=== PATIENT | female | born 1975 | race Two or more races ===

== ENCOUNTER 2017-12-24 15:57 | Emergency (ER) | payer MEDICAID ==
[2014-11-06 08:49] VITALS: Wt 71.2 kg
[~2017-12-24 15:57] MED LIST: ASPI81TA94 PO; FERR-53 PO; HEPA500035 SQ; IBUP600T22 PO; PER PO; WARF-1 PO
[2017-12-24] MEDS ORDERED: CLON-303 PO (16:09)
--- NOTE | 2017-12-24 16:09 | ER Report ---
History and Physical Time Seen By MD: 16:05 Hx. of Stated Complaint: PT REPORTS SEVERE HEADACHE SINCE 11AM HPI/ROS CHIEF COMPLAINT: Headache HISTORY OF PRESENT ILLNESS: This is a 42-year-old, Syrian-speaking only female who presents to the emergency department with her for a headache. Patient states that around 11:00 today she developed a headache, she has a history of migraine headaches however this one seems to be more severe than when she's had in the past. Patient also has a history of antiphospholipid syndrome, she thought this was causing the headache however she thinks it is the migraine. Patient is photophobic no photophobia. Nausea no vomiting at this time. No diarrhea. No recent travel or injuries. No chest pain or shortness of breath. No rashes. REVIEW OF SYSTEMS: Constitutional: No fever, no chills. Eyes: No discharge. ENT: No sore throat. Cardiovascular: No chest pain, no palpitations. Respiratory: No cough, no shortness of breath. Gastrointestinal: As above. Genitourinary: No hematuria. Musculoskeletal: No back pain. Skin: No rashes. Neurological: As above. Allergies: Coded Allergies: No Known Drug Allergies (Unverified , 11/06/14) Home Meds Active Scripts Ibuprofen (IBUPROFEN) 800 Mg Tablet, 1 TAB PO Q8H Y for prn, #12 TAB 0 Refills Prov:ZOË MEZA [facility] 12/24/17 Prochlorperazine Maleate (Compazine) 5 Mg Tablet, 5 MG PO Q6-8H, #12 TAB 0 Refills Prov:ZOË MEZA [facility] 12/24/17 Warfarin Sodium (COUMADIN) 5 Mg Tablet, 5 MG PO QDAY, #30 TAB 1 Refill Prov:BRITTANY BRAND MD 11/10/14 Oxycodone/Acetaminophen (OXYCODONE/ACETAMINOPHEN 5MG/325 MG) 1 Tab Tab, 1-2 TAB PO Q4H Y for PAIN, #30 TAB 0 Refills Prov:BRITTANY BRAND MD 11/10/14 Reported Medications Clonazepam (CLONAZEPAM) 1 Mg Tablet, 1 MG PO BID, #6 TAB 12/24/17 Aspirin (ASPIRIN) 81 Mg Tab.chew, 81 MG PO QDAY, TAB.CHEW TAKE 1 TABLET BY MOUTH EVERY DAY 11/06/14 Discontinued Scripts Ibuprofen (IBUPROFEN) 600 Mg Tab, 600 MG PO Q6H Y for PAIN, #30 TAB 0 Refills Prov:BRITTANY BRAND MD 11/10/14 Ferrous Sulfate (FERROUS SULFATE) 325 Mg Tab, 325 MG PO BIDBS, #50 TAB 0 Refills Prov:BRITTANY BRAND MD 11/10/14 Past Medical/Surgical History Patient has a past medical and surgical history of migraines, anti-phospholipid syndrome. Reviewed Nurses Notes: Yes Hx Smoking: No Smoking Status: Never Smoker Exposure to Second Hand Smoke?: No Constitutional Vital Sign - Last 24 Hours 12/24/17 12/24/17 12/24/17 12/24/17 15:57 16:01 16:02 16:12 Temp 98.5 Pulse ??? 93 80 Resp 14 B/P (MAP) 106/61 (76) 106/61 Pulse Ox 97 98 O2 Delivery Room Air 12/24/17 12/24/17 12/24/17 12/24/17 16:24 16:27 16:30 16:42 Pulse 71 67 B/P (MAP) 101/55 (70) 108/52 (70) Pulse Ox 99 97 12/24/17 12/24/17 12/24/17 12/24/17 16:57 17:00 17:12 17:27 Pulse 63 71 72 B/P (MAP) 113/82 (92) Pulse Ox 100 100 95 12/24/17 12/24/17 12/24/17 12/24/17 17:30 17:42 17:47 18:00 Pulse 70 75 Resp 18 17 B/P (MAP) 107/59 (75) 111/64 (80) Pulse Ox 95 95 12/24/17 12/24/17 12/24/17 12/24/17 18:02 18:17 18:30 18:32 Pulse 75 69 73 Resp 17 14 B/P (MAP) 109/66 (80) Pulse Ox 94 98 12/24/17 18:47 Pulse 76 Pulse Ox 93 Intake and Output 12/24/17 12/24/17 12/25/17 15:00 23:00 07:00 Intake Total 1000 ml Balance 1000 ml Physical Exam General Appearance: The patient is alert, has no immediate need for airway protection and no signs of toxicity, room is darkened for patient comfort. Eyes: Pupils equal and round no pallor or injection. EOMs intact. No nystagmus. ENT, Mouth: Mucous membranes are moist. Respiratory: There are no retractions, lungs are clear to auscultation. Cardiovascular: Regular rate and rhythm, no murmurs, clicks or rubs. Gastrointestinal: Abdomen is soft and non tender, no masses, bowel sounds normal. No abdominal bruits. Neurological: Alert and oriented 4. Moving all extremities. Following all commands. No focal neuro deficits. Cranial nerves II through XII intact. Skin: Warm and dry, no rashes. Musculoskeletal: Neck is supple non tender. Extremities are nontender, nonswollen and have full range of motion. DIFFERENTIAL DIAGNOSIS: After history and physical exam differential diagnosis was considered for headache including but not limited to subarachnoid hemorrhage , migraine headache, tension headache and infectious causes such as meningitis, pharyngitis and sinusitis. Medical Decision Making Data Points Result Diagram: 12/24/17 1630 12/24/17 1630 Laboratory Hematology Test 12/24/17 16:30 Red Blood Count 3.88 M/uL (4.17-5.56) Mean Corpuscular Volume 91.1 fL (80.0-96.0) Mean Corpuscular Hemoglobin 31.0 pg (26.0-33.0) Mean Corpuscular Hemoglobin Concent 34.0 g/dL (32.0-36.0) Red Cell Distribution Width 13.5 % (11.5-14.5) Mean Platelet Volume 9.1 fL (7.2-11.1) Neutrophils (%) (Auto) 72.2 % (39.4-72.5) Lymphocytes (%) (Auto) 21.4 % (17.6-49.6) Monocytes (%) (Auto) 4.8 % (4.1-12.4) Eosinophils (%) (Auto) 1.0 % (0.4-6.7) Basophils (%) (Auto) 0.6 % (0.3-1.4) Nucleated RBC Relative Count (auto) 0.0 /100WBC Neutrophils # (Auto) 7.8 K/uL (2.0-7.4) Lymphocytes # (Auto) 2.3 K/uL (1.3-3.6) Monocytes # (Auto) 0.5 K/uL (0.3-1.0) Eosinophils # (Auto) 0.1 K/uL (0.0-0.5) Basophils # (Auto) 0.1 K/uL (0.0-0.1) Nucleated RBC Absolute Count (auto) 0.00 K/uL Prothrombin Time 15.1 seconds (12.0-14.4) Prothromb Time International Ratio 1.19 Sodium Level 138 mmol/L (137-145) Potassium Level 3.4 mmol/L (3.5-5.0) Chloride Level 104 mmol/L (98-107) Carbon Dioxide Level 24 mmol/L (22-31) Blood Urea Nitrogen 11 mg/dl (7-18) Creatinine 0.60 mg/dl (0.52-1.04) Glomerular Filtration Rate Calc > 60.0 Random Glucose 99 mg/dl (75-110) Calcium Level 8.9 mg/dl (8.4-10.2) Total Bilirubin 0.8 mg/dl (0.2-1.3) Aspartate Amino Transf (AST/SGOT) 18 U/L (0-35) Alanine Aminotransferase (ALT/SGPT) 23 U/L (0-56) Alkaline Phosphatase 87 U/L (0-126) Total Protein 7.4 g/dl (6.3-8.2) Albumin 4.0 g/dl (3.5-5.0) Human Chorionic Gonadotropin, Qual Negative (NEGATIVE) Chemistry Test 12/24/17 16:30 White Blood Count 10.8 k/uL (4.5-11.0) Red Blood Count 3.88 M/uL (4.17-5.56) Hemoglobin 12.0 g/dL (12.0-16.0) Hematocrit 35.3 % (34.0-47.0) Mean Corpuscular Volume 91.1 fL (80.0-96.0) Mean Corpuscular Hemoglobin 31.0 pg (26.0-33.0) Mean Corpuscular Hemoglobin Concent 34.0 g/dL (32.0-36.0) Red Cell Distribution Width 13.5 % (11.5-14.5) Platelet Count 212 K/uL (150-450) Mean Platelet Volume 9.1 fL (7.2-11.1) Neutrophils (%) (Auto) 72.2 % (39.4-72.5) Lymphocytes (%) (Auto) 21.4 % (17.6-49.6) Monocytes (%) (Auto) 4.8 % (4.1-12.4) Eosinophils (%) (Auto) 1.0 % (0.4-6.7) Basophils (%) (Auto) 0.6 % (0.3-1.4) Nucleated RBC Relative Count (auto) 0.0 /100WBC Neutrophils # (Auto) 7.8 K/uL (2.0-7.4) Lymphocytes # (Auto) 2.3 K/uL (1.3-3.6) Monocytes # (Auto) 0.5 K/uL (0.3-1.0) Eosinophils # (Auto) 0.1 K/uL (0.0-0.5) Basophils # (Auto) 0.1 K/uL (0.0-0.1) Nucleated RBC Absolute Count (auto) 0.00 K/uL Prothrombin Time 15.1 seconds (12.0-14.4) Prothromb Time International Ratio 1.19 Glomerular Filtration Rate Calc > 60.0 Calcium Level 8.9 mg/dl (8.4-10.2) Total Bilirubin 0.8 mg/dl (0.2-1.3) Aspartate Amino Transf (AST/SGOT) 18 U/L (0-35) Alanine Aminotransferase (ALT/SGPT) 23 U/L (0-56) Alkaline Phosphatase 87 U/L (0-126) Total Protein 7.4 g/dl (6.3-8.2) Albumin 4.0 g/dl (3.5-5.0) Human Chorionic Gonadotropin, Qual Negative (NEGATIVE) Coagulation Test 12/24/17 16:30 Prothrombin Time 15.1 seconds Prothromb Time International Ratio 1.19 EKG/Imaging Imaging Location[place] [facility] [place]: Lois Bhatti : 1975 Visit/Account:[id number] Date of : 12/24/2017 CT Head without contrast Indication: Headache. Comparison: None available Technique: Axial CT images were obtained through the brain from the skull base to the vertex without administration of IV contrast. Reformatted coronal and sagittal images were also obtained. One of the following dose optimization techniques was utilized in the performance of this exam: automated exposure control; adjustment of the mA and/ or kV according to the patient's size; or use of an iterative reconstruction technique. Specific details can be referenced in the facility's radiology CT exam operational policy. Findings: No evidence of mass, mass effect, or midline shift. No acute intracranial hemorrhage or acute territorial infarction. No extra-axial fluid collection or hydrocephalus. No abnormal density. Benign calcination seen in the posterior medial left frontal lobe. Sheriff/white matter differentiation appears normal. Bony structures show no fractures or lesions. The visualized paranasal sinuses and mastoid air cells are clear. IMPRESSION: 1. No acute intracranial abnormality. Report Dictated By: Tom Sanchez at 12/24/2017 5:29 PM Report E-Signed By: Tom Sanchez at 12/24/2017 5:37 PM WSN:[id number] ED Course/Re-evaluation Clinical Indication for ER IV: Hydration, IV Access ED Course The patient was admitted to a room. A history and physical were obtained. Differential diagnoses were considered. An IV was started. A CBC, CMP, PT and INR were obtained. Lab studies unremarkable however the patient's INR is subtherapeutic at 1.19. Through translation the patient states that she has not been evaluated by a primary care or provider for at least 6 months, she states she is still taking her Coumadin she does get a prescription from provider in [facility]. Head CT negative for any acute intracranial abnormalities. I reviewed the CT results with the patient and her . The patient was given a 1 L normal saline bolus. 30 mg IV Toradol, 12.5 mg IV Phenergan, 4 mg IV Zofran, 125 mg Solu-Medrol with mild pain relief, patient was then given 5 mg IV Reglan. Patient is very sleepy, states the pain as still mildly improving through translation. I did tell the patient once again that she must follow-up with a primary care provider within one week for reevaluation as well as continued monitoring of her Coumadin levels. A prescription for Compazine and ibuprofen was sent patient's pharmacy. The patient and her had no other questions or concerns at this time and was discharged home. Decision to Disposition Date: Dec 24, 2017 Decision to Disposition Time: 19:03 Depart Departure Latest Vital Signs Vital Signs Date Time Temp Pulse Resp B/P (MAP) Pulse Ox O2 Delivery O2 Flow Rate FiO2 12/24/17 18:47 76 93 12/24/17 18:32 14 12/24/17 18:30 109/66 (80) 12/24/17 16:02 98.5 Room Air Impression: Primary Impression: Migraine headache Condition: Improved Disposition: HOME OR SELF-CARE New Scripts Ibuprofen (IBUPROFEN) 800 Mg Tablet 1 TAB PO Q8H Y for prn, #12 TAB 0 Refills Prov: ZOË MEZA [facility] 12/24/17 Prochlorperazine Maleate (Compazine) 5 Mg Tablet 5 MG PO Q6-8H, #12 TAB 0 Refills Prov: ZOË MEZA [facility]- 12/24/17 Patient Instructions: Migraine Headache (ED) Additional Instructions: Drink plenty of water. When you go home, try to rest as much as possible, this will likely help with the migraine. Continue taking your medications as directed. Your Coumadin levels (INR) is not where it needs to be, therefore you must follow up with someone to have it adjusted and continue to monitor the levels and dosing, within one week. You can check with the [facility] clinic, or use the phone list we have provided to follow up with and establish a doctor. Take the Compazine and prescription strength Ibuprofen for the headaches. Return to the ED for any other concerns or worsening symptoms. Beber abundante agua. Cuando vaya a guevara casa, trate de descansar lo ms posible, esto probablemente ayudar con la migraa. Contine tomando nesha medicamentos segn las indicaciones. Nesha niveles de Coumadin (INR) no estn donde debe estar, por lo tanto, debe hacer un seguimiento con alguien para ajustarlo y continuar monitoreando los niveles y la dosificacin, dentro de donavan semana. Puede consultar con la clnica de [facility] o utilizar la lista de telfonos que hemos proporcionado para realizar un seguimiento y establecer un mdico. Salley la Compazine y la prescripcin de ibuprofeno para los heidi de shaneka. Regrese al departamento de emergencias por cualquier otra inquietud o empeoramiento de los sntomas. Problem Qualifiers Primary Impression: Migraine headache Migraine type: without aura Status migrainosus presence: without status migrainosus Intractability: not intractable Qualified Codes: G43.009 - Migraine without aura, not intractable, without status migrainosus ZOË MEZA [facility] Dec 24, 2017 16:09
[2017-12-24] MEDS ORDERED: NS(*) 0.9% 1000 ML BAG 1,000 ML IV ONE (16:22)
[2017-12-24] MEDS ORDERED: diphenhydrAMINE 50 MG/ML VIAL IVP ONE (16:25)
[2017-12-24] MEDS ORDERED: methylPREDNIS SUCC 125 MG/2ML IVP ONE (16:25)
[2017-12-24] MEDS ORDERED: PROMETHAZINE 25 MG/ML 1 ML AMP IVP ONE (16:25)
[2017-12-24] MEDS ORDERED: ONDANSETRON 4 MG/2 ML VIAL IVP ONE (16:25)
[2017-12-24 16:38] LABS: PLATELET COUNT, AUTOMATED 212 K/uL (150-450)
[2017-12-24 16:52] LABS: INR 1.19
--- NOTE | 2017-12-24 17:40 | RADIOLOGY IMAGING REPORT ---
FACILITY: [facility] - [place] PATIENT NAME: Lois Bhatti : 1975 MR: [id number] V: [id number] EXAM DATE: ORDERING PHYSICIAN: ZOË MEZA TECHNOLOGIST: Location: [facility] - [place] Patient: Lois Bhatti : 1975 Visit/Account:[id number] Date of Sevice: 12/24/2017 CT Head without contrast Indication: Headache. Comparison: None available Technique: Axial CT images were obtained through the brain from the skull base to the vertex without administration of IV contrast. Reformatted coronal and sagittal images were also obtained. One of the following dose optimization techniques was utilized in the performance of this exam: autom ated exposure control; adjustment of the mA and/or kV according to the patient's size; or use of an i terative reconstruction technique. Specific details can be referenced in the facility's radiology CT exam operational policy. Findings: No evidence of mass, mass effect, or midline shift. No acute intracranial hemorrhage or acute territorial infarction. No extra-axial fluid collection or hydrocephalus. No abnormal density. Benign calcination seen in the posterior medial left frontal lobe. Sheriff/white matter differentiation appears normal. Bony structures show no fractures or lesions. The visualized paranasal sinuses and mastoid air cells are clear. IMPRESSION: 1. No acute intracranial abnormality. Report Dictated By: Tom Sanchez at 12/24/2017 5:29 PM Report E-Signed By: Tom Sanchez at 12/24/2017 5:37 PM WSN:[id number]
[2017-12-24] MEDS ORDERED: KETOROLAC 30 MG/ML VIAL IVP ONE (17:45)
[2017-12-24 18:30] VITALS: BP 109/66
[2017-12-24] MEDS ORDERED: METOCLOPRAMIDE 10 MG/2 ML SDV IVP ONE (18:35)
[2017-12-24] MEDS ORDERED: IBUP800T37 PO (18:39)
[2017-12-24] MEDS ORDERED: PROC5TAB2 PO (18:39)
== END 2017-12-24 19:15 | disposition home or self-care (01) ==
LOC: ER 16:03
DX: G43.909 Migraine, unspecified, not intractable, without status migrainosus (principal); D68.61 Antiphospholipid syndrome
CPT/HCPCS: 70450; 84703; 85025; 85610; 96361; 96374; 96375; 99284; J1200; J1885; J2405; J2550; J2765; J2930; J7030; 82040; 82247; 82310; 82374; 82435; 82565; 82947; 84075; 84132; 84155; 84295; 84450; 84460; 84520